=== PATIENT | female | born 1970 | race Caucasian/White ===

== ENCOUNTER 2023-11-30 10:02 | Observation (INO) ==
--- NOTE | 2023-11-30 10:32 | Emergency Department Note ---
Impression & Plan Vertebral basilar insufficiency, Dizziness, Stroke-like symptoms ED Provider Note NAME: CHRISTINA WAGONER AGE: 53 SEX: F : 1970 ARRIVES VIA: Walk-In INFORMANT: Patient, ED PROVIDER(S): Jak Son DO CHIEF COMPLAINT: Dizziness HPI: The patient is a 53-year-old female who presented to the emergency department for an evaluation of dizziness. The patient states that on Tuesday she started having intermittent episodes of dizziness. She feels off balance. She notices pressure behind both eyes. She denies having any diplopia. She denies having any nausea or vomiting. The patient also noticed tingling in both right upper and right lower extremities. She called her family doctor this morning and was advised to the emergency department because we might need to get "scans and other things that we would not get quickly enough as an outpatient". The patient denies having any stroke history. She does have a history of hypertension but only takes lisinopril. She has been compliant with her outpatient medications. She denies having any trauma. ROS: See above HPI for pertinent positives & negatives. A total of 10 systems reviewed and were otherwise negative. PAST MEDICAL HISTORY: See Below PAST SURGICAL HISTORY: See Below FAMILY HISTORY: See Below SOCIAL HISTORY: See Below HOME MEDICATIONS: See Below ALLERGIES: See Below VITALS: See Below PHYSICAL EXAMINATION: GENERAL: Patient is awake alert in no acute distress patient is resting comfortably and showing no signs of anxiety EYES: The conjunctivae are clear. The pupils are round and reactive. There was no nystagmus elicited. EARS, NOSE, MOUTH AND THROAT: The nose is without any evidence of any deformity. Mucous membranes are moist. Tongue is midline. NECK: The neck is nontender and supple. RESPIRATORY: Normal respiratory effort is noted there is no evidence of wheezing rhonchi or rales CARDIOVASCULAR: Regular rate and rhythm noted there no murmurs rubs or gallops normal S1 normal S2. GASTROINTESTINAL: The abdomen is soft. Abdomen is nontender. MUSCULOSKELETAL/EXTREMITIES: There is no evidence of gross deformity full range of motion is noted in the hips and shoulders. SKIN: There is no obvious evidence of any rash. There are no petechiae, pallor or cyanosis noted. NEUROLOGIC: Patient is awake alert and oriented x3 strength is symmetric patellar reflexes are 2+ bilaterally. Rapid alternating hand movements were symmetric. Gait was steady. MEDICAL DECISION MAKING: The patient is a 53-year-old female who presented to the emergency department for an evaluation of dizziness. The patient started having symptoms over the course of the last few days. The symptoms have been intermittent. She started first noticing a fullness in her head but then also a dizziness sensation. She also noticed neurologic symptoms in her right upper and right lower extremities. Her exam was normal at this time. I discussed the patient's laboratory and radiographic studies with her. She was found to have some disease noted in the basilar artery. Given the symptoms the patient is presenting with I do feel this could be clinically relevant. She was treated with aspirin in the emergency department. I discussed the patient's condition with the on-call [facility] hospitalist. They have agreed to evaluate the patient in the emergency department for further management and disposition. Triage Nursing notes reviewed. Prior medical records reviewed Vital Signs: reviewed and remarkable for elevated blood pressure. Differential diagnosis: Benign positional vertigo, dehydration, hypovolemia, anemia, tumor, infection, hypoglycemia, electrolyte abnormalities, cardiac sources, intracerebral event, toxicologic, neurologic, as well as other pathologies. ER treatment provided: See below Diagnostics interpreted by me: ECG: EKG was obtained in the emergency department. My interpretation is normal sinus rhythm at 86 bpm. There is no ectopy. LVH was noted by voltage criteria. There was no acute ST segment abnormalities noted. No previous tracings available. Cardiac Monitoring: An order was placed for continuous cardiac monitoring. The monitor shows a rate of 92 bpm with sinus rhythm. Laboratory studies: As stated above and show below. Imaging studies: See below. Radiographic imaging was reviewed by myself Consultation(s): I discussed this case with Thad who is along for the [facility] hospitalist group. Past Med/Surg History Problem List (Updated 11/30/23 @ 13:06 by Jak Son DO) Stroke-like symptoms (Acute) Dizziness (Acute) Vertebral basilar insufficiency (Acute) Routine health maintenance Elevated BP without diagnosis of hypertension Surgical History H/O section x2 Family History Father Diabetes Hypertension Myocardial infarction Mother Diabetes Denies family history of Ovarian cancer Prostate cancer Breast cancer Colorectal cancer Social History Smoking Status: Never smoker Second Hand Exposure: No; Do You Dip or Chew Tobacco: No; Hx Alcohol Use: Yes Alcohol type: wine and other Alcohol Intake Frequency: Monthly or Less Hx Substance Use: No Preferred Language: Kiswahili marital status: Current Living Situation: Spouse current occupational status: unemployed 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 Feels Safe at Home: Yes caffeine: Yes (coffee) Dental Care, Regularly: Yes Physical Activity Frequency: 1-2 Times per Week Seatbelt Use: always Sunscreen Use: Yes Allergies Allergies Allergy/AdvReac Type Severity Reaction Status Date / Time No Known Allergies Allergy Verified 08/31/23 13:00 Home Meds Previous Rx's Medication Instructions Recorded lisinopril 20 mg tablet 20 mg PO DAILY #30 tabs 08/22/23 Results & Data (ED) Vital Signs Vital Signs - 24 hr 11/30/23 10:11 11/30/23 11:05 11/30/23 11:06 Temperature 36.3 C L Temperature Source Temporal Artery Scan Pulse Rate 85 Pulse Rate [Apical] 99 H Respiratory Rate 20 14 Blood Pressure 208/109 H Blood Pressure [Left Arm] 176/104 H Blood Pressure Mean 142 Blood Pressure Mean [Left Arm] 128 Pulse Oximetry 97 100 Oxygen Delivery Method Room Air Room Air Sepsis Recent Fever Within 48 Hours No Sepsis New/Unexplained Change in Mental Status N/A Sepsis Action Taken by Nursing No Action Required 11/30/23 11:07 11/30/23 11:49 Temperature Temperature Source Pulse Rate 94 H Pulse Rate [Apical] 102 H Respiratory Rate 18 Blood Pressure Blood Pressure [Left Arm] 189/103 H Blood Pressure Mean Blood Pressure Mean [Left Arm] 131 Pulse Oximetry 98 Oxygen Delivery Method Room Air Sepsis Recent Fever Within 48 Hours Sepsis New/Unexplained Change in Mental Status Sepsis Action Taken by [facility] Medications Current Medication List: was personally reviewed by me Laboratory Data Attestation: I reviewed the patient's lab results. 11/30/23 10:35 11/30/23 10:35 Lab Results 11/30/23 11/30/23 Range/Units 10:35 10:44 WBC 5.33 (4.8-10.8) K/ul RBC 5.15 (4.20-5.40) M/uL Hgb 15.3 (12.0-16.0) g/dl POC Hgb 16.3 H (12.0-16.0) g/dl Hct 46.2 (37.0-47.0) % POC Hct 48 H (37-47) % MCV 89.7 (80.0-100.0) fL MCH 29.7 (25.0-34.0) pg MCHC 33.1 (32.0-36.0) g/dL RDW Std Deviation 39.9 (36.4-46.3) fL RDW Coeff of Jose 12.1 (11.5-14.5) % Plt Count 226 (130-400) K/uL MPV 10.8 (9.4-12.4) fL Immature Gran % (Auto) 0.2 % Neut % (Auto) 70.7 % Lymph % (Auto) 20.8 % [place] % (Auto) 6.4 % Eos % (Auto) 1.1 % Baso % (Auto) 0.8 % Neut # (Auto) 3.77 (1.40-6.50) K/uL Lymph # (Auto) 1.11 L (1.20-3.40) K/uL [place] # (Auto) 0.34 (0.11-0.59) K/uL Eos # (Auto) 0.06 (0.00-0.50) K/uL Baso # (Auto) 0.04 (0.00-0.20) K/uL Immature Gran # (Auto) 0.01 (0.01-0.20) K/uL PT 9.9 (9.0-12.0) Seconds INR 0.9 (0.9-1.1) APTT 25 (21-31) Seconds PTT Ratio 0.9 POC Sodium 140 (135-144) mmol/L Sodium 140 (136-145) mmol/L POC Potassium 3.9 (3.3-5.0) mmol/L Potassium 3.9 (3.5-5.1) mmol/L POC Chloride 104 (101-112) mmol/L Chloride 104 (98-107) mmol/L Carbon Dioxide 30 (21-32) mmol/L POC Total CO2 24 (24-31) mmol/L Anion Gap 6 (3-11) POC Anion Gap 17.0 (16-25) mmol/L POC BUN 18 (7-18) mg/dl BUN 19 (6-23) mg/dl Creatinine 0.68 (0.6-1.2) mg/dl POC Creatinine 0.7 (0.6-1.3) mg/dl Est Cr Clr Drug Dosing 85.9 ml/min Est GFR ( Amer) 114.1 ml/min Est GFR (Non-Af Amer) 98.5 ml/min BUN/Creatinine Ratio 27.9 H (10-20) Glucose 145 H (70-99(Fasting)) mg/dl POC Glucose (other) 142 H (70-99) mg/dl Calcium 9.8 (8.6-10.3) mg/dl POC Ioniz Calcium Phil 1.21 (1.12-1.32) mmol/l Magnesium 2.1 (1.7-2.4) mg/dl Total Bilirubin 0.5 (0.2-1.0) mg/dl AST 20 (13-39) U/L ALT 25 (7-52) U/L Alkaline Phosphatase 81 (34-104) U/L Troponin I High Sens 4.3 (0-14) pg/ml Total Protein 7.9 (6.0-8.3) gm/dl Albumin 4.9 (3.4-5.0) gm/dl Globulin 3.0 (2.5-4.0) gm/dl Albumin/Globulin Ratio 1.6 (0.9-2) Administered Medications Discontinued Medications Aspirin (Aspirin Chew 324 Mg) 324 mg PO NOW STA Stop: 11/30/23 12:31 Last Admin: 11/30/23 12:54 Dose: 324 mg Documented By: KOKI Ioversol (Optiray 320 125ml) 112 ml IV ONCE ONE Stop: 11/30/23 10:55 Last Admin: 11/30/23 10:55 Dose: 112 ml Documented By: RAINA Imaging Data Attestation: I personally reviewed and interpreted this imaging study as follows: My Impression: 1 view chest x-ray was obtained in the emergency department. My interpretation is no free air or definite infiltrate, final report below. CT the brain was obtained in the emergency department. My interpretation is no intracranial hemorrhage or mass effect, final report below. Radiologist's Impression: Chest X-Ray 11/30/23 10:24 XR chest 1V portable HISTORY: neuro deficit, acute stroke suspected COMPARISON: None. FINDINGS: The lungs are clear. Cardiac silhouette is normal in size. No pleural effusions. No pneumothorax. IMPRESSION: No acute process. ACT 112: Negative or not required by law. Electronically signed by: Jasper Herndon M.D. 11/30/2023 11:[address] 11/30/23 10:24 CT angio head w con, CT head/brain wo con CLINICAL HISTORY: neuro deficit, acute stroke suspected TECHNIQUE: Contiguous axial CT images of the head were acquired from the base of the skull to the vertex without intravenous contrast administration. CT angiography of the head was performed following intravenous administration of iodinated contrast. Coronal and sagittal MIPS were obtained from the axial data set and were submitted for review. Automated dose lowering techniques and/or adjustment according to patient size were utilized for this examination. All measurements were calculated based on NASCET criteria. Comparison: None available at the time of this dictation. FINDINGS: CT head: There is no acute intracranial hemorrhage or evidence of acute territorial infarction. No shift of the midline structures, mass effect, or extra-axial abnormalities are shown. CTA Head: The anterior and posterior cerebral circulations are patent. Multifocal narrowing of the basilic artery is seen. origin of the right posterior cerebral artery is noted. IMPRESSION: 1. No acute intracranial hemorrhage, evidence of acute territorial infarction, or other acute intracranial disease process. 2. Chronic appearing narrowing of the basilic artery which likely causes hemodynamically significant stenosis. Assessment of stenosis of the internal carotid arteries is based on NASCET criteria. ACT 112: Negative or not required by law. Electronically signed by: Richie Lim M.D. 11/30/2023 11:10 AM Head CTA 11/30/23 10:24 CT angio head w con, CT head/brain wo con CLINICAL HISTORY: neuro deficit, acute stroke suspected TECHNIQUE: Contiguous axial CT images of the head were acquired from the base of the skull to the vertex without intravenous contrast administration. CT angiography of the head was performed following intravenous administration of iodinated contrast. Coronal and sagittal MIPS were obtained from the axial data set and were submitted for review. Automated dose lowering techniques and/or adjustment according to patient size were utilized for this examination. All measurements were calculated based on NASCET criteria. Comparison: None available at the time of this dictation. FINDINGS: CT head: There is no acute intracranial hemorrhage or evidence of acute territorial infarction. No shift of the midline structures, mass effect, or extra-axial abnormalities are shown. CTA Head: The anterior and posterior cerebral circulations are patent. Multifocal narrowing of the basilic artery is seen. origin of the right posterior cerebral artery is noted. IMPRESSION: 1. No acute intracranial hemorrhage, evidence of acute territorial infarction, or other acute intracranial disease process. 2. Chronic appearing narrowing of the basilic artery which likely causes hemodynamically significant stenosis. Assessment of stenosis of the internal carotid arteries is based on NASCET criteria. ACT 112: Negative or not required by law. Electronically signed by: Richie Lim M.D. 11/30/2023 11:10 AM Neck CTA 11/30/23 10:24 CT ANGIOGRAM OF THE NECK CLINICAL HISTORY: Neurological deficit. Strokelike symptoms. COMPARISON STUDY: No priors. TECHNIQUE: Following the IV administration of 112 of Optiray 320, CT angiogram of the neck was performed from the aortic arch to the skull base. Images are reviewed in the axial, sagittal, and coronal planes. 3-D MIPS images are created and assessed. IV contrast was administered without complication. All measurements were calculated based on NASCET criteria. A dose lowering technique was utilized adhering to the principles of ALARA. CT DOSE: 1009.91 mGy.cm FINDINGS: Thoracic aorta: Visualized portions of the thoracic aorta are normal in caliber. The aortic arch demonstrates standard bovine variant anatomy. Right carotid arterial system: The right common carotid artery is widely patent, as are the right internal and external carotid arteries. Mild calcified plaque is seen in the carotid bulb. Left carotid arterial system: The left common carotid artery is widely patent, as are the left internal and external carotid arteries. Mild calcified plaque is seen in the carotid bulb. Vertebral arteries: The vertebral arteries are patent bilaterally noting left- sided dominance. Subclavian arteries: Widely patent bilaterally. Plaque is in the left subclavian artery below the thoracic outlet. Jugular veins: Patent bilaterally. Brain parenchyma: The visualized brain parenchyma the skull base is within normal limits. Lung apices: Partially visualized upper lobe lung parenchyma appears clear. Soft tissues: The visualized pharyngeal soft tissues are normal in appearance noting angiographic phase technique. The oropharyngeal airway appears widely patent. The salivary and thyroid glands are normal in appearance. No cervical lymphadenopathy is seen. Skeletal structures: The visualized calvarium at the skull base appears intact. The imaged cervical spine is within normal limits. Sinuses and mastoids: There is a small right mastoid effusion. Left mastoid air cells are well-pneumatized. Trace mucosal thickening is noted in the maxillary antra. IMPRESSION: Unremarkable CT angiogram of the neck. ACT 112: Negative or not required by law. Electronically signed by: Favian Guajardo M.D. 11/30/2023 11:18 AM Discharge Plan Visit Data Chief Complaint: Dizziness Stated Complaint: DIZZINESS, RIGHT FOOT/HAND NUMBNESS ED Provider: Jak Son Discharge Problem: Vertebral basilar insufficiency, Dizziness, Stroke-like symptoms Patient Disposition: Being Evaluated by Hospitalist Forms Stand Alone Forms: My [facility] Prescriptions Prescriptions: No Action lisinopril 20 mg tablet 20 mg PO DAILY Qty: 30 5RF Referrals Referrals: Melissa Connolly MD [Primary Care Provider] -
[2023-11-30 10:52] LABS: Basophils # (auto) 0.04 K/uL (0.00-0.20); Basophils % (auto) 0.8 %; Eosinophils # (auto) 0.06 K/uL (0.00-0.50); Eosinophils % (auto) 1.1 %; Hematocrit (blood only) 46.2 % (37.0-47.0); Hemoglobin 15.3 g/dl (12.0-16.0); Immature Granulocytes # (auto) 0.01 K/uL (0.01-0.20); Immature Granulocytes % (auto) 0.2 %; Lymphocytes # (auto) 1.11 K/uL (1.20-3.40); Lymphocytes % (auto) 20.8 %; Mean Corpuscular Hemoglobin 29.7 pg (25.0-34.0); Mean Corpuscular Hgb Conc 33.1 g/dL (32.0-36.0); Mean Corpuscular Volume 89.7 fL (80.0-100.0); Mean Platelet Volume 10.8 fL (9.4-12.4); Monocytes # (auto) 0.34 K/uL (0.11-0.59); Monocytes % (auto) 6.4 %; Neutrophils # (auto) 3.77 K/uL (1.40-6.50); Neutrophils % (auto) 70.7 %; Platelet Count 226 K/uL (130-400); RDW Coefficient of Variation 12.1 % (11.5-14.5); RDW Standard Deviation 39.9 fL (36.4-46.3); Red Blood Count 5.15 M/uL (4.20-5.40); White Blood Count 5.33 K/ul (4.8-10.8)
[2023-11-30] MEDS: OPTIRAY 320 125ml IV ONE (10:55)
[2023-11-30 10:56] LABS: iSTAT Creatinine 0.7 mg/dl (0.6-1.3); iSTAT Hemoglobin 16.3 g/dl (12.0-16.0); iSTAT Ionized Calcium 1.21 mmol/l (1.12-1.32); iSTAT Potassium 3.9 mmol/L (3.3-5.0)
--- NOTE | 2023-11-30 11:02 | XRay Report ---
XR chest 1V portable HISTORY: neuro deficit, acute stroke suspected COMPARISON: None. FINDINGS: The lungs are clear. Cardiac silhouette is normal in size. No pleural effusions. No pneumot horax. IMPRESSION: No acute process. ACT 112: Negative or not required by law. Electronically signed by: Jasper Herndon M.D. 11/30/2023 11:00 AM
[2023-11-30 11:12] LABS: Albumin Globulin Ratio 1.6 (0.9-2); Albumin Level 4.9 gm/dl (3.4-5.0); BUN Creatinine Ratio 27.9 (10-20); Bilirubin,Total 0.5 mg/dl (0.2-1.0); Calcium 9.8 mg/dl (8.6-10.3); Creatinine Clr Calc Pharmacy 85.9 ml/min; Est GFR (African American) 114.1 ml/min; Est GFR (Non-African American) 98.5 ml/min; Magnesium 2.1 mg/dl (1.7-2.4); Potassium 3.9 mmol/L (3.5-5.1); Total Protein 7.9 gm/dl (6.0-8.3)
--- NOTE | 2023-11-30 11:13 | CT Scan Report ---
CT angio head w con, CT head/brain wo con CLINICAL HISTORY: neuro deficit, acute stroke suspected TECHNIQUE: Contiguous axial CT images of the head were acquired from the base of the skull to the janak althea without intravenous contrast administration. CT angiography of the head was performed following intravenous administration of iodinated contrast. Coronal and sagittal MIPS were obtained from the ax ial data set and were submitted for review. Automated dose lowering techniques and/or adjustment acc ording to patient size were utilized for this examination. All measurements were calculated based on NASCET criteria. Comparison: None available at the time of this dictation. FINDINGS: CT head: There is no acute intracranial hemorrhage or evidence of acute territorial infarction. No sh ift of the midline structures, mass effect, or extra-axial abnormalities are shown. CTA Head: The anterior and posterior cerebral circulations are patent. Multifocal narrowing of the b asilic artery is seen. origin of the right posterior cerebral artery is noted. IMPRESSION: 1. No acute intracranial hemorrhage, evidence of acute territorial infarction, or other acute intrac ranial disease process. 2. Chronic appearing narrowing of the basilic artery which likely causes hemodynamically significant stenosis. Assessment of stenosis of the internal carotid arteries is based on NASCET criteria. ACT 112: Negative or not required by law. Electronically signed by: Richie Lim M.D. 11/30/2023 11:10 AM
[2023-11-30 11:16] LABS: Troponin I High Sensitivity 4.3 pg/ml (0-14)
--- NOTE | 2023-11-30 11:19 | CT Scan Report ---
CT ANGIOGRAM OF THE NECK CLINICAL HISTORY: Neurological deficit. Strokelike symptoms. COMPARISON STUDY: No priors. TECHNIQUE: Following the IV administration of 112 of Optiray 320, CT angiogram of the neck was perfor med from the aortic arch to the skull base. Images are reviewed in the axial, sagittal, and coronal p lanes. 3-D MIPS images are created and assessed. IV contrast was administered without complication. A ll measurements were calculated based on NASCET criteria. A dose lowering technique was utilized adh ering to the principles of ALARA. CT DOSE: 1009.91 mGy.cm FINDINGS: Thoracic aorta: Visualized portions of the thoracic aorta are normal in caliber. The aortic arch demo nstrates standard bovine variant anatomy. Right carotid arterial system: The right common carotid artery is widely patent, as are the right int ernal and external carotid arteries. Mild calcified plaque is seen in the carotid bulb. Left carotid arterial system: The left common carotid artery is widely patent, as are the left international controller al and external carotid arteries. Mild calcified plaque is seen in the carotid bulb. Vertebral arteries: The vertebral arteries are patent bilaterally noting left-sided dominance. Subclavian arteries: Widely patent bilaterally. Plaque is in the left subclavian artery below the tho racic outlet. Jugular veins: Patent bilaterally. Brain parenchyma: The visualized brain parenchyma the skull base is within normal limits. Lung apices: Partially visualized upper lobe lung parenchyma appears clear. Soft tissues: The visualized pharyngeal soft tissues are normal in appearance noting angiographic pha se technique. The oropharyngeal airway appears widely patent. The salivary and thyroid glands are nor mal in appearance. No cervical lymphadenopathy is seen. Skeletal structures: The visualized calvarium at the skull base appears intact. The imaged cervical s pine is within normal limits. Sinuses and mastoids: There is a small right mastoid effusion. Left mastoid air cells are well-pneuma tized. Trace mucosal thickening is noted in the maxillary antra. IMPRESSION: Unremarkable CT angiogram of the neck. ACT 112: Negative or not required by law. Electronically signed by: Favian Guajardo M.D. 11/30/2023 11:18 AM
[2023-11-30 11:26] LABS: INR 0.9 (0.9-1.1); Partial Thromboplastin Ratio 0.9; Partial Thromboplastin Time 25 Seconds (21-31); Prothrombin Time 9.9 Seconds (9.0-12.0)
--- NOTE | 2023-11-30 12:38 | History & Physical Report ---
Date of Service November 30, 2023 Assessment & Plan (1) Stroke-like symptoms: Plan: Admit to med telemetry Currently stable and nontoxic-appearing Presented to the ED earlier today due to worsening of her sensation of dizziness/imbalance this morning after standing and walking to her car Patient has also had intermittent episodes of numbness/tingling in the right hand/arm Paresthesias have currently resolved but patient is still mildly dizzy at the time of exam, symptoms are not exacerbated with movement of her eyes or head to suggest vertigo/BPPV, no changes in hearing, ear fullness, or sensation that the room is spinning to suggest Mnire's Patient was noted to have chronic narrowing of the basilic artery which likely causes hemodynamically significant stenosis on CTA of the head today, apparently has a history of hyperlipidemia but is not currently on a lipid-lowering agent, and was noted to be hyperglycemic on arrival but confirms she has had nothing to eat today Patient does have multiple risk factors for possible CVA Will obtain MRI of the brain without contrast now to monitor for signs of recent stroke Patient was given 324 mg aspirin at the time of exam, will give 40 mg of atorvastatin now Will obtain echocardiogram for further evaluation Every 4 hours neurochecks, will allow permissive hypertension until MRI results are back Will obtain orthostatic vitals to rule out orthostatic hypotension as possible cause of her symptoms Fall precautions PT/OT consults Heart healthy diet Bilateral TONYA stockings for DVT prophylaxis AM CBC, BMP, fasting lipid panel, hemoglobin A1c (2) HTN (hypertension): Plan: Patient confirms she took her dose of lisinopril this morning Was noted to be significant hypertension on arrival at 208/109 Hypertension could be related to anxiety/stress due to current hospitalization but cannot rule out CVA as possible otology at this time Will allow for permissive hypertension on admission until MRI results are back Plan The patient was discussed with Dr. Pereyra at the time of the admission History of Present Illness Chief Complaint: dizziness, right sided paresthesias Primary Care Provider: Melissa Connolly MD Ivette is a 53-year-old female with a past medical history significant for hypertension who presented to the [facility] ED on 11/30/2023 at the recommendation of her PCP due to ongoing dizziness and right-sided paresthesias which started on 11/26/2023. On arrival to the ED she was noted to be hypertensive at 208/109, tachycardic at with heart rate in the low 100s, but otherwise stable. Labs were significant for glucose of 145 but CBC and CMP were otherwise unremarkable. Chest x-ray was read as negative for acute findings. CT of the head and brain without con and CTA of the head with con were read as negative for acute intracranial hemorrhage, evidence of acute tentorial infarction, or other acute intracranial disease process. Chronic appearing narrowing of the basilic artery which likely causes hemodynamically significant stenosis. CT of the neck was read as negative for acute findings. We are asked to admit the patient for ongoing evaluation and treatment of the patient strokelike symptoms. Prior to admission the patient was ordered 324 mg aspirin. Patient was sitting in bed in no acute distress at time of exam with her bedside, history is obtained from both. Patient states that she started develop intermittent episodes of numbness/tingling in the right foot and right hand on 11/26/2023. She explained that it felt similar to as though she would have slept on the side and her extremities fell asleep but she was not experience any symptoms when she first woke in the morning. Since 11/26/2023 she is also experienced intermittent episodes of dizziness exacerbated when going from sitting to standing. When asked, she denies the room spinning, changes in vision, hearing, taste, or smell when having these dizzy episodes. No previous history of vertigo, denies recent illness, does not use tobacco and drinks alcohol occasionally during social situations but not consistently. She presented to the ED earlier today as she had acute onset of significant imbalance when standing prior to trying to drive her daughter to volleyball practice. She felt so off balance that her daughter had to help her sit and she did not feel safe to drive at that time. Currently her paresthesias have resolved but she still feels slightly lightheaded/dizzy while at rest. States that she has been compliant with her daily lisinopril and when her cholesterol was last checked she states that "my bad cholesterol was elevated". Denies playing sports such as golf, tennis, or pickleball consistently. 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 She is a full code and would want her to make medical decisions for her if she cannot make them herself. Please refer to Dr. Pereyra's attestation for any changes to the treatment plan Allergies Allergy/AdvReac Type Severity Reaction Status Date / Time No Known Allergies Allergy Verified 11/30/23 13:10 Home Medications Medication Instructions Recorded Confirmed Type lisinopril 20 mg tablet 20 mg PO DAILY #30 tabs 08/22/23 11/30/23 Rx Past Med/Surg History Problem List (Updated 11/30/23 @ 13:11 by Thad Lauernt PA-C) HTN (hypertension) Stroke-like symptoms (Acute) Dizziness (Acute) Vertebral basilar insufficiency (Acute) Routine health maintenance Elevated BP without diagnosis of hypertension Surgical History H/O section x2 Family History Father Diabetes Hypertension Myocardial infarction Mother Diabetes Denies family history of Ovarian cancer Prostate cancer Breast cancer Colorectal cancer Social History Smoking Status: Never smoker Second Hand Exposure: No; Do You Dip or Chew Tobacco: No; Tobacco Cessation Education Requested by Patient: No Hx Alcohol Use: Yes Alcohol type: wine Alcohol Intake Frequency: Monthly or Less Hx Substance Use: No Preferred Language: Palauan Communication Ability: Effective Pot Fluxer Required: No Beliefs That Will Affect Care: None marital status: Current Living Situation: Spouse and Family current occupational status: unemployed 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 Other Information That Helps Us Care for You: No Feels Safe at Home: Yes Safety Concerns: Feels Safe At This Time caffeine: Yes (coffee) Dental Care, Regularly: Yes Physical Activity Frequency: 1-2 Times per Week Seatbelt Use: always Sunscreen Use: Yes Physical Exam Physical Exam: Physical Exam: General: In no acute distress, stated age, well-nourished, nontoxic-appearing HEENT: Normocephalic, atraumatic, no scleral icterus, pupils around round, symmetrical, and reactive to light, moist mucus membranes, trachea midline, no thyromegaly > No pain or pressure on palpation of the bilateral frontal and maxillary sinuses Chest/Pulm: No respiratory distress, symmetrical chest expansion, clear br eath sounds throughout Cardiac: RRR, no murmurs noted Abdomen: Negative for ascites and bruising, normoactive bowel sounds, soft, non-tender to palpation throughout Musculoskeletal: Symmetrical and without signs of acute trauma, upper and lower extremities with full ROM, no atrophy, spasticity, or flaccidity > No reproducible paresthesias on palpation of the medial/lateral epicondyles, or tapping over the ventral aspect of the right wrist to suggest carpal tunnel, tennis elbow, or golf elbow Extremities: Radial, dorsalis pedis, and posterior tibial pulses are intact and symmetrical, no edema noted in the BL LE's Skin: Warm, dry, no rashes , lesions, or scars noted Neuro: Alert and oriented to person, place, month, year, and president, no focal defects, CN II-XII tested and intact, negative cerebellar and pronator drift testing in the bilateral upper extremities, no tremors noted > Patient did not have exacerbation of her dizziness during extraocular movement testing Psych: Mildly anxious but no acute distress, polite and cooperative during the exam Results & Data Results & Data Vital Signs (Past 12 Hours) Vital Signs Temp Pulse Pulse Resp BP BP Pulse Ox 11/30/23 11:49 102 H 18 189/103 H 98 11/30/23 11:07 94 H 11/30/23 11:06 11/30/23 11:05 99 H 14 176/104 H 100 11/30/23 10:11 36.3 C L 85 20 208/109 H 97 O2 Del Method 11/30/23 11:49 Room Air 11/30/23 11:07 11/30/23 11:06 Room Air 11/30/23 11:05 Room Air 11/30/23 10:11 Laboratory Results Abnormal lab results 11/30/23 11/30/23 Range/Units 10:35 10:44 POC Hgb 16.3 H (12.0-16.0) g/dl POC Hct 48 H (37-47) % Lymph # (Auto) 1.11 L (1.20-3.40) K/uL BUN/Creatinine Ratio 27.9 H (10-20) Glucose 145 H (70-99(Fasting)) mg/dl POC Glucose (other) 142 H (70-99) mg/dl Diagnostic Findings Chest X-Ray 11/30/23 10:24 XR chest 1V portable HISTORY: neuro deficit, acute stroke suspected COMPARISON: None. FINDINGS: The lungs are clear. Cardiac silhouette is normal in size. No pleural effusions. No pneumothorax. IMPRESSION: No acute process. ACT 112: Negative or not required by law. Electronically signed by: Jasper Herndon M.D. 11/30/2023 11:[address] 11/30/23 10:24 CT angio head w con, CT head/brain wo con CLINICAL HISTORY: neuro deficit, acute stroke suspected TECHNIQUE: Contiguous axial CT images of the head were acquired from the base of the skull to the vertex without intravenous contrast administration. CT angiography of the head was performed following intravenous administration of iodinated contrast. Coronal and sagittal MIPS were obtained from the axial data set and were submitted for review. Automated dose lowering techniques and/or adjustment according to patient size were utilized for this examination. All measurements were calculated based on NASCET criteria. Comparison: None available at the time of this dictation. FINDINGS: CT head: There is no acute intracranial hemorrhage or evidence of acute territorial infarction. No shift of the midline structures, mass effect, or extra-axial abnormalities are shown. CTA Head: The anterior and posterior cerebral circulations are patent. Multifocal narrowing of the basilic artery is seen. origin of the right posterior cerebral artery is noted. IMPRESSION: 1. No acute intracranial hemorrhage, evidence of acute territorial infarction, or other acute intracranial disease process. 2. Chronic appearing narrowing of the basilic artery which likely causes hemodynamically significant stenosis. Assessment of stenosis of the internal carotid arteries is based on NASCET criteria. ACT 112: Negative or not required by law. Electronically signed by: Richie Lim M.D. 11/30/2023 11:10 AM Head CTA 11/30/23 10:24 CT angio head w con, CT head/brain wo con CLINICAL HISTORY: neuro deficit, acute stroke suspected TECHNIQUE: Contiguous axial CT images of the head were acquired from the base of the skull to the vertex without intravenous contrast administration. CT angiography of the head was performed following intravenous administration of iodinated contrast. Coronal and sagittal MIPS were obtained from the axial data set and were submitted for review. Automated dose lowering techniques and/or adjustment according to patient size were utilized for this examination. All measurements were calculated based on NASCET criteria. Comparison: None available at the time of this dictation. FINDINGS: CT head: There is no acute intracranial hemorrhage or evidence of acute territorial infarction. No shift of the midline structures, mass effect, or extra-axial abnormalities are shown. CTA Head: The anterior and posterior cerebral circulations are patent. Multifocal narrowing of the basilic artery is seen. origin of the right posterior cerebral artery is noted. IMPRESSION: 1. No acute intracranial hemorrhage, evidence of acute territorial infarction, or other acute intracranial disease process. 2. Chronic appearing narrowing of the basilic artery which likely causes hemodynamically significant stenosis. Assessment of stenosis of the internal carotid arteries is based on NASCET criteria. ACT 112: Negative or not required by law. Electronically signed by: Richie Lim M.D. 11/30/2023 11:10 AM Neck CTA 11/30/23 10:24 CT ANGIOGRAM OF THE NECK CLINICAL HISTORY: Neurological deficit. Strokelike symptoms. COMPARISON STUDY: No priors. TECHNIQUE: Following the IV administration of 112 of Optiray 320, CT angiogram of the neck was performed from the aortic arch to the skull base. Images are reviewed in the axial, sagittal, and coronal planes. 3-D MIPS images are created and assessed. IV contrast was administered without complication. All measurements were calculated based on NASCET criteria. A dose lowering technique was utilized adhering to the principles of ALARA. CT DOSE: 1009.91 mGy.cm FINDINGS: Thoracic aorta: Visualized portions of the thoracic aorta are normal in caliber. The aortic arch demonstrates standard bovine variant anatomy. Right carotid arterial system: The right common carotid artery is widely patent, as are the right internal and external carotid arteries. Mild calcified plaque is seen in the carotid bulb. Left carotid arterial system: The left common carotid artery is widely patent, as are the left internal and external carotid arteries. Mild calcified plaque is seen in the carotid bulb. Vertebral arteries: The vertebral arteries are patent bilaterally noting left- sided dominance. Subclavian arteries: Widely patent bilaterally. Plaque is in the left subclavian artery below the thoracic outlet. Jugular veins: Patent bilaterally. Brain parenchyma: The visualized brain parenchyma the skull base is within normal limits. Lung apices: Partially visualized upper lobe lung parenchyma appears clear. Soft tissues: The visualized pharyngeal soft tissues are normal in appearance noting angiographic phase technique. The oropharyngeal airway appears widely patent. The salivary and thyroid glands are normal in appearance. No cervical lymphadenopathy is seen. Skeletal structures: The visualized calvarium at the skull base appears intact. The imaged cervical spine is within normal limits. Sinuses and mastoids: There is a small right mastoid effusion. Left mastoid air cells are well-pneumatized. Trace mucosal thickening is noted in the maxillary antra. IMPRESSION: Unremarkable CT angiogram of the neck. ACT 112: Negative or not required by law. Electronically signed by: Favian Guajardo M.D. 11/30/2023 11:18 AM ECG Additional Comments: Normal sinus rhythm with sinus arrhythmia Left atrial enlargement Possible Old Septal infarct Abnormal ECG No previous ECGs available Confirmed by Ezequile Vazquez ([id number]) on 11/30/2023 12:46:49 PM Code Status & VTE Plan Code Status Full code VTE Prophylaxis Plan VTE Prophylaxis will be ordered: Yes Supervising Physician Co-Signing Physician Notes I personally saw and examined the patient. I verified all rolon points and agree with Thad Laurent PA-C with the following exceptions and/or additions: 53 year old female presents to the ER with right arm paresthesia and loss of balance. Started over the weekend but much more off balance today O/E HS RRR, no murmurs, Chest CTAB, Abdo SNT, CN 2-> 12 intact, no diadochokinesia, extremity weakness or loss of sensation A/P Vertebrobasilar insufficiency vs. CVA - Brain MRI showing old infarct only. Symptoms appear acute although findings suggest more of a chronic nature - will consult neurology for clarification and recommendations. Suspect small vessel disease o the basis of hypertension and will restart her lisinopril CVA - old noted on brain MRI, complete workup with lipid panel, HbA1C, telemetry, TTE. Start atorvastatin and aspirin. PG Care Time/CCT Total # of Minutes Spent Total Time Spent with Patient: Total time spent is greater than 50% in coordination of care (as documented) at patient's floor/unit and/or counseling patient: Coding [place] [address] INT INP/OBS CARE 2MIN Patient Type Established Medical Decision Making Moderate Complexity Diagnoses Stroke-like symptoms R29.90 HTN (hypertension) I10
[2023-11-30] MEDS ORDERED: PHARMACIST DISCHARGE MED REC CONSULT PRN (12:39)
--- NOTE | 2023-11-30 12:47 | Electrocardiogram Report ---
Test Reason : Blood Pressure : */* mmHG Vent. Rate : 86 BPM Atrial Rate : 86 BPM P-R Int : 136 ms QRS Dur : 80 ms QT Int : 342 ms P-R-T Axes : 51 6 55 degrees QTcB Int : 409 ms Normal sinus rhythm with sinus arrhythmia Left atrial enlargement Possible Old Septal infarct Abnormal ECG No previous ECGs available Confirmed by Ezequiel Vazquez ([id number]) on 11/30/2023 12:46:49 PM Referred By: REFERRED SELF Confirmed By: Ezequiel Vazquez
[2023-11-30] MEDS: ASPIRIN CHEW 324 MG PO STA (12:54)
[2023-11-30] MEDS: ATORVASTATIN 40 MG TAB PO SCH ×2 (14:04→20:34)
[2023-11-30] MEDS: guaiFENesin 600 MG TABCR PO STA (14:04)
--- NOTE | 2023-11-30 15:51 | Magnetic Resonance Report ---
Brain MRI WITHOUT CONTRAST HISTORY: stroke-like symptoms TECHNIQUE: Multiplanar multisequence MRI of the brain was performed without the use of contrast. COMPARISON STUDY: Head CT 11/30/2023. FINDINGS: No areas restricted diffusion to suggest an acute infarction. The major vascular flow-voids at the skull base are maintained. The ventricles and sulci are within normal limits. There is no mas s, hematoma, midline shift. The orbits are unremarkable. The paranasal sinuses and left mastoid air c ells are clear. There is a trace right mastoid effusion. There is an old lacunar infarct seen within the junction of the midbrain/liss. A few additional foci of T2 hyperintensity seen within the midbrai n, liss, bilateral middle cerebral peduncles, and within the white matter of the supratentorial brain are also noted. These are nonspecific could be due to microvascular ischemic change or possibly a de myelinating disease. IMPRESSION: 1. No acute infarct or intracranial hemorrhage. 2. There is an old lacunar infarct within the junction of the midbrain/liss. 3. A few additional foci of T2 hyperintensity seen within the midbrain, liss, bilateral middle cerebr al peduncles, and within the white matter of the supratentorial brain are also noted. These are nonsp ecific and could be due to microvascular ischemic change or possibly a demyelinating disease. ACT 112: Negative or not required by law. Electronically signed by: Jasper Herndon M.D. 11/30/2023 3:50 PM
[2023-11-30] MEDS ORDERED: guaiFENesin 600 MG TABCR PO SCH (21:00)
[2023-12-01 07:34] LABS: Hematocrit (blood only) 44.5 % (37.0-47.0); Hemoglobin 14.6 g/dl (12.0-16.0); Mean Corpuscular Hemoglobin 29.9 pg (25.0-34.0); Mean Corpuscular Hgb Conc 32.8 g/dL (32.0-36.0); Mean Corpuscular Volume 91.2 fL (80.0-100.0); Mean Platelet Volume 10.9 fL (9.4-12.4); Platelet Count 210 K/uL (130-400); RDW Coefficient of Variation 12.2 % (11.5-14.5); Red Blood Count 4.88 M/uL (4.20-5.40); White Blood Count 6.06 K/ul (4.8-10.8)
--- NOTE | 2023-12-01 07:46 | Hospitalist Progress Note ---
Date of Service December 01, 2023 Assessment & Plan (1) Vertebral basilar insufficiency: (2) Stroke-like symptoms: (3) HTN (hypertension): (4) Hyperlipidemia: (5) Elevated blood sugar level: Marquita Treadwell is 53 years lady with past h/o Hypertension and Hyperlipidemia admitted for Stroke rule out after presenting to ED when she developed numbness, paraesthesia and imbalance since last 4 days. Her BP on ED was 200/109 mm Hg. 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 Her status is stable with no new weakness or focal deficit. (1) Vertebrobasilar insufficiency; Suspicious stroke on presentation Symptoms on presentation mimicked Stroke. 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 Will monitor her BP throughout today. Echo: Mild Concentric LVH, PrEF: 60-65% 3.Elevated Blood Sugar: Likely Undiagnosed DM HBA1C 5.9/ FBS 133 today Given her overall RFs; plan to add oral ADA on discharge. Recommend Lifestyle modifications Diabetic Diet+ Exercise ( 150m/week) Will F/U her HBA1C/ FBS and PP BS in 3 month 4. Hyperlipidemia Hypercholesteremia and High LDL ( Fasting; as of today) 10 year ASCVD score: 9.9% Recommending her high intensity Statin: Lipitor 40 OD Lifestyle Modification as above mentioned Repeat Lipids in 6 weeks. Admission and Anticipated Discharge Date Admission Date: November 30, 2023 Supervising Physician Co-Signing Physician Notes Attending Physician Supervision Note: I independently interviewed and examined the patient and verified the rolon history and physical, reviewed labs and image studies and agree with findings and care plan noted above. Dizziness and right sided weakness - Ruled out CVA. No acute changes in MRI. Per neuro - Suspect that her significant hypertension triggered vasospasm and other EMERGENCY RESPONSE COORDINATOR symptoms which were reminiscent of a vertebrobasilar insufficiency. Narrowing of the basilar artery on CT angiogram -may be congenital. Considering her narrow basilar artery and moderate (considering her age) old small vessel ischemic disease, Plavix is a better choice than aspirin for this patient. Dizziness - likely vertiginous symptoms. Follow-up with neuro in 3 to 4 weeks. Switched aspirin to plavix daily. Echo normal EF. No PFO. LDL 153 - atorvastatin added. To further increase as outpatient. HTN - Titrate antihypertensives -adding HCTZ. Continue lisinopril 20 mg daily. Mild LVH on echo likely from uncontrolled blood pressure. Glucose intolerance -A1c 5.9. Outpatient follow-up. Subjective Today morning, Marivel was doing overall fine. Her numbness and tingling are improved than before. She mentioned some pressure in her supraorbital area bilateral, which she thinks probably because of lack of sleep last night. She does not endorse any weakness of limbs, vision problem like double vision or blurring of vision, swallowing problem, any hearing concerns, no other focal deficit, nausea or vomiting. Review of Systems Review of Systems: As per HPI Physical Exam Constitutional: well developed, well nourished and + well hydrated Eyes: PERRL, conjunctivae normal, anicteric sclerae ENMT: Ears: no EAC abnormality Nose: no external nose abnormality Neck: trachea midline, no thyromegaly Respiratory: normal respiratory effort, lungs clear to auscultation Cardiovascular: RRR, no murmur, no edema Gastrointestinal (Abdomen): normal bowel sounds, soft, nontender, no hepatosplenomegaly Musculoskeletal: no cyanosis or clubbing, extremities motor strength 5/5 Skin: no rashes, warm and dry Neurologic: PERRL, EOMI, accommodation nl, no face palsy, no dysarthria CN's II-XI intact bilaterally Psychiatric: A+Ox3, euthymic affect Results & Data Results & Data Vital Signs (Past 12 Hours) Vital Signs Temp Pulse Pulse Resp BP Pulse Ox O2 Del Method 12/01/23 04:13 37.3 C 90 16 151/84 H 97 Room Air 12/01/23 00:00 82 11/30/23 23:20 37.1 C 77 18 168/93 H 95 Room Air 11/30/23 19:54 37.2 C 87 16 175/100 H 95 Room Air
[2023-12-01 08:26] LABS: BUN Creatinine Ratio 26.8 (10-20); Calcium 9.6 mg/dl (8.6-10.3); Chol HDL Ratio 3.2 (0-5); Creatinine Clr Calc Pharmacy 80.2 ml/min; Est GFR (African American) 111.1 ml/min; Est GFR (Non-African American) 95.9 ml/min; Potassium 4.5 mmol/L (3.5-5.1)
[2023-12-01] MEDS: lisinopril 20 MG TAB PO SCH (08:34)
[2023-12-01] MEDS: ASPIRIN 81 MG ECTAB PO SCH (08:34)
[2023-12-01 08:42] LABS: Estimated Average Glucose 123 mg/dl; Hemoglobin A1C 5.9 % (4.5-5.6)
--- NOTE | 2023-12-01 10:07 | XCELERA ---
[id number] \\[id number]
--- NOTE | 2023-12-01 10:11 | Neurology Consultation ---
Date of Consultation December 01, 2023 Assessment & Plan (1) HTN (hypertension): (2) Dizziness: (3) Vertebral basilar insufficiency: Plan This patient has had a several day history of intermittent "dizziness" which is likely a vertiginous issue. She had little in the way of lightheadedness and did not fall or faint. She had some dysesthesias of the right hand and foot intermittently and nonspecific pressure type headache. Currently, all of the symptoms are resolved and her neurologic examination is normal with no focal findings, meningeal signs, or encephalopathy. NIH stroke scale equals 0. On CT angiography she has a narrow basilar artery. This may be congenital. There is no other vascular anomalies or stenoses present in the head and neck. I suspect that her significant hypertension triggered vasospasm and other FORTUNE TELLER symptoms which were reminiscent of a vertebrobasilar insufficiency. Patient has mild elevation of glucose and hemoglobin A1c of 5.9. Recommendations: 1. Discontinue 81 mg aspirin and initiate clopidogrel 75 mg daily. Considering her narrow basilar artery and moderate (considering her age) old small vessel ischemic disease I think Plavix is a better choice than aspirin for this patient. 2. Agree with atorvastatin 40 mg daily. She is a high-dose statin candidate, so this could be increased. 3. Control blood pressure as you are doing. Aiming for a mean arterial pressure of 100-110 is reasonable for the next few days. 4. Awaiting echocardiogram results 5. We could follow-up this patient has an outpatient (with neurology PA) 3 to 4 weeks after discharge, if desired Overall, I spent a total of 75 minutes with this case including review of records, review of CT and MRI films, direct evaluation of the patient at bedside, report generation, and discussion of the case with the patient and RN at bedside, and Dr. Sky, including differential diagnosis and treatment options. History of Present Illness Reason for Consultation: Patient is a 53-year-old, who was asked to see the request of Dr. Pereyra, for neurologic consultation regarding new onset neurologic symptoms Requesting Physician: Dr. Pereyra Attending Physician: Rosemarie Zuleta MD History of Present Illness This patient has a longstanding history of hypertension intermittently treated over the last 15 years. More recently she has been on lisinopril 20 mg daily. She used in her usual state of excellent health when on November 25 she was at the [facility] fair when she felt "off". This was more like a fogginess to her thinking and noted some numbness and tingling in her right foot and right hand. Her balance was off but because she was woozy but she did not fall. She denied any more specific vision issues, speech issues, or pain. She did have some pressure behind her eyes but no headache otherwise. The symptoms persisted i ntermittently for several days until November 29. On November 29 she woke up in the morning feeling fine. She had coffee and got herself ready for the day. At approximately 0815 she was very "dizzy". This was a vertiginous woozy feeling and was quite intense (worse than previous days). She could not walk well. She arrived to the emergency room November 29 at 1011, 36.3, pulse 85, respiratory 20, blood pressure 200/109, and O2 saturation 97%. Pressure remained elevated in the emergency room. The neurologic examination there were no focal findings, meningeal signs, or encephalopathy. CBC and CHEM profile were unremarkable although glucose was 145. Chest x-ray was unremarkable. CT scan of the head showed no acute issues. CT angiography of the head and neck was unremarkable except for a narrow/small basilar artery which was likely chronic. No other specific stenoses were noted. MRI of the brain showed old small vessel ischemic disease of a moderate nature with no acute stroke or new findings. There was an old brainstem lacune. I reviewed these films. This morning patient feels back to baseline without any dizziness, pressure or headache, numbness or tingling, weakness, speech issues, or mentation problems. Nursing reports no new issues and physical therapy reports that she is ambulating normally with good strength. Blood pressure this morning is 170/89 and she is afebrile. CBC and CHEM profile were normal except for glucose of 133. Hemoglobin A1c was 5.9. Triglycerides were 99 and total cholesterol 256. Allergies Allergy/AdvReac Type Severity Reaction Status Date / Time No Known Allergies Allergy Verified 11/30/23 13:10 Home Medications Medication Instructions Recorded Confirmed Type lisinopril 20 mg tablet 20 mg PO DAILY #30 tabs 08/22/23 11/30/23 Rx Patient History Surgical History H/O section x2 Family History Father Diabetes Hypertension Myocardial infarction Mother Diabetes Denies family history of Ovarian cancer Prostate cancer Breast cancer Colorectal cancer Social History (Updated 12/01/23 @ 10:04 by Surinder Duke MD) Smoking Status: Former smoker Age Started Using Tobacco: 19; Age Quit Using Tobacco: 28; packs per day: 0.5; Second Hand Exposure: No; Do You Dip or Chew Tobacco: No; Hx Alcohol Use: Yes Alcohol type: wine Alcohol Intake Frequency: Monthly or Less Alcohol Intake Frequency Comment: At most, 3 glasses of wine, per month Hx Substance Use: No Preferred Language: Lithuanian Communication Ability: Effective 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 Beliefs That Will Affect Care: None marital status: Current Living Situation: Spouse and Family current occupational status: unemployed 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 Feels Safe at Home: Yes caffeine: Yes (coffee) Dental Care, Regularly: Yes Physical Activity Frequency: 1-2 Times per Week Seatbelt Use: always Sunscreen Use: Yes Review of Systems Constitutional: no fever, no fatigue and no weakness Eyes: no diplopia, no eye pain and no worsening vision Ear, Nose, Mouth, Throat: no ear pain, no tinnitus, no hearing loss, no dizziness, no snoring, no hoarseness and no dysphagia Respiratory: no cough and no dyspnea Cardiovascular: no chest pain, no palpitations and no lightheadedness Gastrointestinal: no abdominal pain, no nausea and no vomiting Genitourinary: no dysuria, no urinary frequency and no urinary incontinence Musculoskeletal: no back pain, no neck pain, no radicular pain, no joint pain and no myalgia Integumentary: no rash and no lesions Neurologic: no gait abnormality, no localized weakness, no generalized weakness, no tingling, no numbness, no tremor(s), no abnormal movements, no headache(s), no abnormal speech, no confusion and no memory loss Psychiatric: no depression, no irritability, no anxiety, no difficulty concentrating, no confusion and no hallucinations Endocrine: no fatigue and no flushing Hematologic / Lymphatic: no easy bleeding and no easy bruising Allergy / Immunological: no urticaria and no problem reported Exam (Neuro) Physical Exam: The patient is right-handed. The patient is awake, alert, and attentive. Speech is normal without any aphasia or dysarthria. Mentation and thought processes are intact, with full orientation and normal fund of knowledge. Mood and affect are normal and appropriate. Appearance and grooming are normal. Short and long-term memory are intact. Pupils are 4 mm bilaterally and reactive to light. Extraocular eye muscles are intact without nystagmus. Visual acuity and visual henson seem normal grossly to confrontation. There are no deficits to sensation in the face in all 3 distributions of the fifth cranial nerve bilaterally. Corneal reflexes are positive bilaterally. Facial strength and symmetry was normal bilaterally. Hearing seems intact grossly to voice and finger rub bilaterally. Palate moves well without a symmetry. There is normal sternocleidomastoid and trapezius strength bilaterally. Tongue is midline with good strength bilaterally. Neck has a full range of motion without discomfort. There are no cervical bruits bilaterally. There are no cranial or ocular bruits. Heart is without murmur. There is a regular rhythm and rate. Cervical, thoracic, and lumbar spine are nontender to palpation. Gait is narrow based, with good arm swing, turns, and stance. Balance is normal eyes open or closed. With outstretched arms there is no drift. There are no resting, postural, or action tremors. There is no ataxia with finger to nose testing. There is good facility in the hands. No other abnormal involuntary movements are noted. Motor strength is 5/5 diffusely in the arms bilaterally including deltoids, biceps, triceps, brachioradialis, wrist flexors and extensors, stage set designer, and intrinsic hand muscles. Motor strength is 5/5 diffusely in the legs bilaterally including hip flexors, quadriceps, hamstrings, gastrocnemius, tibialis anterior, tibialis posterior, and Peroneii muscles bilaterally. Toe extensors are normal and there is good bulk in the extensor digitorum brevis muscles bilaterally. The limbs have good tone without rigidity or spasticity. There is no atrophy noted in the muscles. Muscle bulk is normal, there is no tenderness to palpation, no myotonia to percussion, and no fasciculations seen. Sensory examination is intact to touch and pin throughout all 4 limbs diffusely. Reflexes are 2/4 in the biceps, triceps, brachioradialis, quadriceps, and Achilles tendons bilaterally. Toes are downgoing with plantar stimulation bilaterally. Peripheral pulses are present and of normal quality distally in all 4 limbs. There is no peripheral edema noted in the limbs. Results & Data Vital Signs (Past 12 Hours) Vital Signs Temp Pulse Pulse Resp BP Pulse Ox O2 Del Method 12/01/23 09:29 Room Air 12/01/23 07:51 36.9 C 95 H 16 170/89 H 96 Room Air 12/01/23 07:00 68 12/01/23 04:13 37.3 C 90 16 151/84 H 97 Room Air 12/01/23 00:00 82 11/30/23 23:20 37.1 C 77 18 168/93 H 95 Room Air PG Care Time/CCT Total # of Minutes Spent Total Time Spent with Patient: Total time spent is greater than 50% in coordination of care (as documented) at patient's floor/unit and/or counseling patient: Coding Level of Care Code 80690 INT INP/OBS CARE 3/75MIN Diagnoses HTN (hypertension) I10 Dizziness R42 Vertebral basilar insufficiency G45.0 Time Spent (min) 75
[2023-12-01] MEDS: ACETAMINOPHEN 325 MG TAB PO PRN (14:55)
[2023-12-01] MEDS: lisinopril 20 MG TAB PO STA (17:38)
[2023-12-01] MEDS: CLOPIDOGREL BISULFATE 75 MG TAB PO SCH (20:42)
[2023-12-02] MEDS: hydrALAZINE HCL 20 MG/ML VIAL IV ONE (00:30)
[2023-12-02 07:58] VITALS: RESP 18
--- NOTE | 2023-12-02 07:58 | Hospitalist Progress Note ---
Date of Service December 02, 2023 Assessment & Plan (1) Vertebral basilar insufficiency: (2) Stroke-like symptoms: (3) HTN (hypertension): (4) Hyperlipidemia: (5) Elevated blood sugar level: Marquita Treadwell is 53 years lady with past h/o Hypertension and Hyperlipidemia admitted for Stroke rule out after presenting to ED when she developed numbness, paraesthesia and imbalance since last 4 days. Her BP on ED was 200/109 mm Hg. 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 Her status is stable with no new weakness or focal deficit. (1) Vertebrobasilar insufficiency; Suspicious stroke on presentation Symptoms on presentation mimicked Stroke. 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 Will monitor her BP throughout today. Echo: Mild Concentric LVH, PrEF: 60-65% 3.Elevated Blood Sugar: Likely Undiagnosed DM HBA1C 5.9/ FBS 133 today Given her overall RFs; plan to add oral ADA on discharge. Recommend Lifestyle modifications Diabetic Diet+ Exercise ( 150m/week) Will F/U her HBA1C/ FBS and PP BS in 3 month 4. Hyperlipidemia Hypercholesteremia and High LDL ( Fasting; as of today) 10 year ASCVD score: 9.9% Recommending her high intensity Statin: Lipitor 40 OD Lifestyle Modification as above mentioned Repeat Lipids in 6 weeks. Admission and Anticipated Discharge Date Admission Date: November 30, 2023 Subjective Today morning, Marivel was doing fine. She slept better, comfortable with her food. She had a high BP episode last night needing Hydralazine. Otherwise not symptomatic, no headache now. She does not endorse any weakness of limbs, vision problem like double vision or blurring of vision, swallowing problem, any hearing concerns, no other focal deficit, nausea or vomiting. Review of Systems Review of Systems: As per HPI Physical Exam Constitutional: well developed, well nourished and + well hydrated Eyes: PERRL, conjunctivae normal, anicteric sclerae ENMT: Ears: no EAC abnormality Nose: no external nose abnormality Neck: trachea midline, no thyromegaly Respiratory: normal respiratory effort, lungs clear to auscultation Cardiovascular: RRR, no murmur, no edema Gastrointestinal (Abdomen): normal bowel sounds, soft, nontender, no hepatosplenomegaly Musculoskeletal: no cyanosis or clubbing, extremities motor strength 5/5 Skin: no rashes, warm and dry Neurologic: PERRL, EOMI, accommodation nl, no face palsy, no dysarthria CN's II-XI intact bilaterally Psychiatric: A+Ox3, euthymic affect Results & Data Results & Data Vital Signs (Past 12 Hours) Vital Signs Temp Pulse Pulse Resp BP Pulse Ox O2 Del Method 12/02/23 07:09 65 12/02/23 03:00 36.5 C 104 H 17 153/90 H 98 Room Air 12/02/23 00:00 69 12/01/23 22:42 36.9 C 82 17 175/107 H 96 Room Air 12/01/23 20:05 36.7 C 88 17 174/101 H 97 Room Air
--- NOTE | 2023-12-02 08:19 | Neurology Progress Note ---
Date of Service December 02, 2023 Assessment & Plan (1) HTN (hypertension): (2) Dizziness: (3) Vertebral basilar insufficiency: Plan This patient has had a several day history (prior to admission) of intermittent "dizziness", likely vertiginous. She had no significant lightheadedness and did not fall or alter consciousness. She had some dysesthesias of the right hand and foot intermittently and a nonspecific pressure type headache. Since admission, all of the symptoms are resolved and her neurologic examination is normal with no focal findings, meningeal signs, or encephalopathy. On CT angiography, she has a narrow basilar artery. This may be congenital. There is no other vascular anomalies or stenoses present in the head and neck. 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 Patient has mild elevation of glucose and hemoglobin A1c of 5.9. She has an elevated total cholesterol of 256 Overall, therefore, hypertension seems to be the root of her symptoms. Currently her blood pressure is improved Recommendations: 1. Continue clopidogrel 75 mg daily 2. Continue atorvastatin 40 mg daily 3. Continue controlling blood pressure, aiming for a mean arterial pressure of approximately 100, over the next week or so 4. If desired, follow-up with neurology (neurology PA) 1 to 2 months after discharge Overall, I spent a total of 35 minutes with this case including review of records, direct evaluation of the patient at bedside, report generation, and discussion of the case with the patient at bedside, and Dr. Sky, including differential diagnosis and treatment options. Admission and Anticipated Discharge Date Admission Date: November 30, 2023 Subjective Patient has no complaints of dizziness or lightheadedness. She can sit up and walk without symptoms. There are no vision issues or speech problems. She does not have a headache or pain. There is no weakness or numbness in the arms or legs. Blood pressure this morning is 153/91. Echocardiogram was unremarkable/normal Results & Data Vital Signs (Past 12 Hours) Vital Signs Temp Pulse Pulse Resp BP Pulse Ox O2 Del Method 12/02/23 07:57 36.9 C 91 H 18 153/91 H 98 Room Air 12/02/23 07:09 65 12/02/23 03:00 36.5 C 104 H 17 153/90 H 98 Room Air 12/02/23 00:00 69 12/01/23 22:42 36.9 C 82 17 175/107 H 96 Room Air Exam (Neuro) Physical Exam: She is awake and alert. Speech is without aphasia or dysarthria. Mood and aff ect are normal and appropriate. Thought processes are intact with good long and short-term memory. Extraocular muscles are intact without nystagmus. There is no facial droop and tongue is midline. Coordination is normal in the arms without tremor or ataxia. Strength is 5/5 diffusely no magical description arms and legs both proximally and distally. Stance sitting up is normal PG Care Time/CCT Total # of Minutes Spent Total Time Spent with Patient: Total time spent is greater than 50% in coordination of care (as documented) at patient's floor/unit and/or counseling patient: Coding Level of Care Code 12185 SUB INP/OBS CARE 2/35MIN Diagnoses HTN (hypertension) I10 Dizziness R42 Vertebral basilar insufficiency G45.0
[2023-12-02] MEDS: lisinopril 40 MG TAB PO SCH (08:38)
--- NOTE | 2023-12-02 11:25 | Discharge Summary ---
Date of Service December 02, 2023 Admission HPI Per Admitting Provider Ivette is a 53-year-old female with a past medical history significant for hypertension who presented to the [facility] ED on 11/30/2023 at the recommendation of her PCP due to ongoing dizziness and right-sided paresthesias which started on 11/26/2023. On arrival to the ED she was noted to be hypertensive at 208/109, tachycardic at with heart rate in the low 100s, but otherwise stable. Labs were significant for glucose of 145 but CBC and CMP were otherwise unremarkable. Chest x-ray was read as negative for acute findings. CT of the head and brain without con and CTA of the head with con were read as negative for acute intracranial hemorrhage, evidence of acute tentorial infarction, or other acute intracranial disease process. Chronic appearing narrowing of the basilic artery which likely causes hemodynamically significant stenosis. CT of the neck was read as negative for acute findings. We are asked to admit the patient for ongoing evaluation and treatment of the patient strokel noni symptoms. Prior to admission the patient was ordered 324 mg aspirin. Patient was sitting in bed in no acute distress at time of exam with her bedside, history is obtained from both. Patient states that she started develop intermittent episodes of numbness/tingling in the right foot and right hand on 11/26/2023. She explained that it felt similar to as though she would have slept on the side and her extremities fell asleep but she was not experience any symptoms when she first woke in the morning. Since 11/26/2023 she is also experienced intermittent episodes of dizziness exacerbated when going from sitting to standing. When asked, she denies the room spinning, changes in vision, hearing, taste, or smell when having these dizzy episodes. No previous history of vertigo, denies recent illness, does not use tobacco and drinks alcohol occasionally during social situations but not consistently. She presented to the ED earlier today as she had acute onset of significant imb alance when standing prior to trying to drive her daughter to volleyball practice. She felt so off balance that her daughter had to help her sit and she did not feel safe to drive at that time. Currently her paresthesias have resolved but she still feels slightly lightheaded/dizzy while at rest. States that she has been compliant with her daily lisinopril and when her cholesterol was last checked she states that "my bad cholesterol was elevated". Denies playing sports such as golf, tennis, or pickleball consistently. 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 She is a full code and would want her to make medical decisions for her if she cannot make them herself. Please refer to Dr. Pereyra's attestation for any changes to the treatment plan Admission Exam Per Admitting Provider General: In no acute distress, stated age, well-nourished, nontoxic-appearing HEENT: Normocephalic, atraumatic, no scleral icterus, pupils around round, symmetrical, and reactive to light, moist mucus membranes, trachea midline, no thyromegaly > No pain or pressure on palpation of the bilateral frontal and maxillary sinuses Chest/Pulm: No respiratory distress, symmetrical chest expansion, clear breath sounds throughout Cardiac: RRR, no murmurs noted Abdomen: Negative for ascites and bruising, normoactive bowel sounds, soft, non- tender to palpation throughout Musculoskeletal: Symmetrical and without signs of acute trauma, upper and lower extremities with full ROM, no atrophy, spasticity, or flaccidity > No reproducible paresthesias on palpation of the medial/lateral epicondyles, or tapping over the ventral aspect of the right wrist to suggest carpal tunnel, tennis elbow, or golf elbow Extremities: Radial, dorsalis pedis, and posterior tibial pulses are intact and symmetrical, no edema noted in the BL LE's Skin: Warm, dry, no rashes , lesions, or scars noted Neuro: Alert and oriented to person, place, month, year, and president, no focal defects, CN II-XII tested and intact, negative cerebellar and pronator drift testing in the bilateral upper extremities, no tremors noted > Patient did not have exacerbation of her dizziness during extraocular movement testing Psych: Mildly anxious but no acute distress, polite and cooperative during the exam Principal Diagnosis Vertebrobasilar Insufficiency HTN Hyperlipidemia Discharge Exam Constitutional: well developed, well nourished and + well hydrated Eyes: PERRL, conjunctivae normal, anicteric sclerae ENMT: Ears: no EAC abnormality Nose: no external nose abnormality Neck: trachea midline, no thyromegaly Respiratory: normal respiratory effort, lungs clear to auscultation Cardiovascular: RRR, no murmur, no edema Gastrointestinal (Abdomen): normal bowel sounds, soft, nontender, no hepatosplenomegaly Musculoskeletal: no cyanosis or clubbing, extremities motor strength 5/5 Skin: no rashes, warm and dry Neurologic: PERRL, EOMI, accommodation nl, no face palsy, no dysarthria CN's II-XI intact bilaterally Psychiatric: A+Ox3, euthymic affect Discharge Data Allergies Allergy/AdvReac Type Severity Reaction Status Date / Time No Known Allergies Allergy Verified 11/30/23 13:10 Consultations 11/30/23 12:24 ED Decision to Admit Stat 11/30/23 18:37 Consult Neurology Routine Ordered Studies 11/30/23 10:24 CT angio head w con Stat CT angio neck with con Stat CT head/brain wo con Stat 11/30/23 12:57 MRI Brain [MR brain wo con] Urgent Hospital Course (1) Vertebral basilar insufficiency: (2) Stroke-like symptoms: (3) HTN (hypertension): (4) Hyperlipidemia: (5) Elevated blood sugar level: Marquita Treadwell is 53 years lady with past h/o Hypertension and Hyperlipidemia admitted for Stroke rule out after presenting to ED when she developed numbness, paraesthesia and imbalance since last 4 days. Her BP on ED was 200/109 mm Hg. 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 Her status is stable with no new weakness or focal deficit. (1) Vertebrobasilar insufficiency; Suspicious stroke on presentation Symptoms on presentation mimicked Stroke. 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 Hyperlipidemia Hypercholesteremia and High LDL ( Fasting; as of today) 10 year ASCVD score: 9.9% Recommending her high intensity Statin: Lipitor 40 OD Lifestyle Modification as above mentioned Repeat Lipids in 6 weeks. 5. Nutrition Consult: She is positive about waiter consult before discharge so that she can have better diet continuity at home. Ordered consult; encouraged DASH diet and low carb diet Total Time Total Time Spent Total Time Spent (In Minutes): See Attending's Attestation Discharge Plan Discharge Items Patient Disposition: Home - Self-Care Reason For Visit: STROKE LIKE SYMPTOMS Discharge Diagnosis: Stroke like symptoms ruled out. Condition on Discharge: Good Health Concerns: HTN High Blood sugar Hyperlipidemia Goals: MAP: 100mm Hg for next 1 week BP goal snf: 130/80 Activity: Resume your previous activity Non-emergency contact: Primary Care Provider Call non-emergency contact if: you have any medication questions Follow-up/Referrals: Melissa Connolly MD [Primary Care Provider] - 12/09/23 11:30 am Diet: Carb Consistent or DM2, Heart Healthy and Low Sodium (2gm) Addtl Attending Provider Instructions: Stroke ruled out at admission Follow up Neurology in 1 month, as per consult. 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; MAP 100 for next 1 week pen[facility]entiary goal: 130/80 Pending Studies at Discharge: No Stand-Alone Forms: My Myla, Smoking Cessation Medications and DC Order Prescriptions: New atorvastatin 40 mg Tablet 40 mg PO QPM Qty: 30 0RF clopidogrel 75 mg Tablet 75 mg PO QAM Qty: 30 0RF lisinopril [Zestril] 40 mg Tablet 40 mg PO QAM Qty: 30 0RF hydrochlorothiazide 12.5 mg tablet 12.5 mg PO DAILY Qty: 30 0RF Discontinued lisinopril 20 mg tablet 20 mg PO DAILY Qty: 30 5RF Discharge Orders: Discharge Order (Routine); Ordered 12/02/23 Ordered By: Barbara Mobley/Other Patient Handouts: All About Cholesterol Control, Low-Salt Choices, Cholesterol Lifestyle Changes, Medicine for Cholesterol Control, Blood Pressure Check Steps Admission Data Admit Date/Time: 11/30/23 12:38 Attending Provider: Rosemarie Zuleta Admit Provider: Gerardo Pereyra Primary Care Provider: Melissa Connolly Other Providers: Gerardo Pereyra; Surinder Duke Other Interventions: Discharge Summary Assessment (RN) Last Done: 12/02/23 13:31 Supervising Physician Co-Signing Physician Notes Attending Physician Supervision Note: I independently interviewed and examined the patient and verified the rolon history and physical, reviewed labs and image studies and agree with findings and care plan noted above. Dizziness and right sided weakness - Ruled out CVA. No acute changes in MRI. Per neuro - Suspect that her significant hypertension triggered vasospasm and other [employer] symptoms which were reminiscent of a vertebrobasilar insufficiency. Narrowing of the basilar artery on CT angiogram -may be congenital. Considering her narrow basilar artery and moderate (considering her age) old small vessel ischemic disease, Plavix is a better choice than aspirin for this patient. Dizziness - likely vertiginous symptoms. Follow-up with neuro in 3 to 4 weeks. Switched aspirin to plavix daily. Echo normal EF. No PFO. LDL 153 - atorvastatin added. To further increase as outpatient. HTN - Mild LVH on Echo likely from uncontrolled BP. Increased lisinopril dose to 40mgs and added HCTZ to 12.5mgs. PCP f/u for BP monitoring. Glucose intolerance -A1c 5.9. Outpatient follow-up. Resident Activity Tracking Resident Involvement: Resident Care Provided Care Provided: Adult Hospital Medicine
[2023-12-02 11:52] VITALS: O2SAT 97
[2023-12-02] MEDS: hydroCHLOROthiazide 25 MG TAB PO ONE (13:05)
[2023-12-02 13:31] VITALS: PULSE 92
[2023-12-02] MEDS: hydrALAZINE 10 MG TAB PO ONE (14:18)
[2023-12-02 15:37] VITALS: BP 169/111; TEMP 99
== END 2023-12-02 16:42 | disposition home or self-care (01) ==
LOC: ED 10:02 → 2N 10:02 → SUATTDRO 13:48